=== PATIENT | female | born 1930 | race Caucasian/White ===

== ENCOUNTER 2018-03-18 09:30 | Outpatient (CLI) | payer OTHER | END 2018-03-18 19:32 | disposition home or self-care (01) | LOC: SRD 09:30 | PROVIDERS: ATTEND Family Medicine | DX: Z12.31 Encounter for screening mammogram for malignant neoplasm of breast (principal) | CPT/HCPCS: 77067 ==

== ENCOUNTER 2019-03-20 07:58 | Outpatient (CLI) | payer OTHER | END 2019-03-20 20:51 | disposition home or self-care (01) | LOC: SMA 07:58 | PROVIDERS: ATTEND Family Medicine | DX: Z12.31 Encounter for screening mammogram for malignant neoplasm of breast (principal) | CPT/HCPCS: 77067 ==

== ENCOUNTER 2020-07-21 09:45 | Outpatient (CLI) | payer OTHER | END 2020-07-21 20:38 | disposition home or self-care (01) | LOC: SMA 09:45 | PROVIDERS: ATTEND Family Medicine | DX: Z12.31 Encounter for screening mammogram for malignant neoplasm of breast (principal) | CPT/HCPCS: 77067 ==